=== PATIENT | male | born 1965 | race Two or more races ===

== ENCOUNTER 2022-01-05 12:11 | Emergency (ER) | payer OTHER ==
[~2022-01-05] VITALS: Ht 180.3 cm; Wt 90.7 kg
[2022-01-05] MEDS ORDERED: ROSUVASTATIN CA10 MG PO (12:42)
[2022-01-05] MEDS ORDERED: ORPHENADRINE C100 MG PO (18:31)
== END 2022-01-05 18:47 | disposition home or self-care (01) ==
LOC: ER 12:11
DX: M54.9 Dorsalgia, unspecified (principal); Z88.0 Allergy status to penicillin